=== PATIENT | male | born 1995 | race Caucasian/White ===

== ENCOUNTER 2021-12-31 15:03 | Outpatient (CLI) | payer OTHER, SELFPAY ==
[2021-12-31 15:27] LABS: Influenza Type A Negative (Negative); Influenza Type B Negative (Negative)
[2021-12-31 18:50] LABS: SARS PCR* Negative SARS-CoV-2 (Negative)
== END 2021-12-31 15:04 | disposition home or self-care (01) ==
PROVIDERS: PCP Family Medicine; Visit Provider Family Medicine
DX: Z20.822 Contact with and (suspected) exposure to COVID-19 (principal); R05.9 Cough, unspecified
CPT/HCPCS: 87635; 87804

== ENCOUNTER 2025-02-07 13:55 | Outpatient (CLI) | payer OTHER, SELFPAY | END 2025-02-07 13:56 | disposition home or self-care (01) | LOC: LKVREF 13:56 | PROVIDERS: PCP Family Medicine; Visit Provider Family Medicine | DX: Z13.6 Encounter for screening for cardiovascular disorders (principal) | CPT/HCPCS: 80061 ==